=== PATIENT | male | born 1965 | race Caucasian/White ===

== ENCOUNTER 2020-06-01 15:20 | Emergency (ER) | payer OTHER ==
[~2020-06-01 15:20] MED LIST: IBUPROFEN800 MG PO; ZOFRAN ODT 4 MG4 MG SL
== END 2020-06-01 16:10 | disposition home or self-care (01) ==
LOC: ER1 15:20
DX: S51.801A Unspecified open wound of right forearm, initial encounter (principal); E11.9 Type 2 diabetes mellitus without complications; X58.XXXA Exposure to other specified factors, initial encounter; Z88.5 Allergy status to narcotic agent; Z88.6 Allergy status to analgesic agent
CPT/HCPCS: 99283

== ENCOUNTER 2020-12-21 04:14 | Emergency (ER) | payer OTHER ==
[~2020-12-21] VITALS: Ht 182.9 cm; Wt 113.4 kg
[2020-12-21 07:41] LABS: RED BLOOD COUNT 2.46 M/UL (4.20-5.50); WHITE BLOOD COUNT 11.6 K/UL (4.5-11.0)
[2020-12-21 21:52] LABS: ACINETOBACTER BAUMANNII Not Detected (Negative); CANDIDA ALBICANS Not Detected (Negative); CANDIDA KRUSEI Not Detected (Negative); CANDIDA TROPICALIS Not Detected (Negative); ENTEROCOCCUS Not Detected (Negative); ESCHERICHIA COLI Not Detected (Negative); HAEMOPHILUS INFLUENZAE Not Detected (Negative); KLEBSIELLA OXYTOCA Not Detected (Negative); KLEBSIELLA PNEUMONIAE Not Detected (Negative); KPC-CARBAPENEM-RESISTANCE GENE Not Detected (Negative); PROTEUS Not Detected (Negative); PSEUDOMONAS AERUGINOSA Not Detected (Negative); SERRATIA MARCESANS Not Detected (Negative); STAPHYLOCOCCUS Not Detected (Negative); STAPHYLOCOCCUS AUREUS Not Detected (Negative); STREP AGALACTIAE (GROUP B) Not Detected (Negative); STREP PYOGENES (GROUP A) Not Detected (Negative); mecA (METHICILLIN RESIST GENE Not Detected (Negative); vanA/B (VANCOMYCIN RESIST GENE Not Detected (Negative)
[2020-12-22 00:24] LABS: STREPTOCOCCUS DETECTED (Negative)
[2020-12-22 05:04] LABS: HEMOGLOBIN 7.7 gm/dl (14.0-17.5); RED BLOOD COUNT 2.34 M/UL (4.20-5.50); WHITE BLOOD COUNT 12.3 K/UL (4.5-11.0)
[2020-12-22 07:38] LABS: HEMOGLOBIN 7.5 gm/dl (14.0-17.5)
== END 2020-12-22 11:10 | disposition short-term general hospital (02) ==
LOC: ER1 04:14
PROVIDERS: Family Medicine; Internal Medicine; Student in an Organized Health Care Education/Training Program
DX: A41.9 Sepsis, unspecified organism (principal); R65.21 Severe sepsis with septic shock; G93.41 Metabolic encephalopathy; J96.01 Acute respiratory failure with hypoxia; K74.60 Unspecified cirrhosis of liver; R41.82 Altered mental status, unspecified; Z20.822 Contact with and (suspected) exposure to COVID-19; R77.8 Other specified abnormalities of plasma proteins; N17.9 Acute kidney failure, unspecified; N18.9 Chronic kidney disease, unspecified; R18.8 Other ascites; J90 Pleural effusion, not elsewhere classified; J81.1 Chronic pulmonary edema; E11.22 Type 2 diabetes mellitus with diabetic chronic kidney disease
CPT/HCPCS: 31500; 36430; 36556; 36600; 70450; 71045; 71250; 72125; 76705; 80053; 80162; 80307; 82009; 82140; 82550; 82553; 82803; 83036; 83605; 83690; 83735; 83874; 83880; 84484; 85014; 85018; 85025; 85027; 85610; 86850; 86900; 86901; 86920; 87040; 87077; 87150; 87186; 92950; 93005; 94002; 94760; 96374; 99285; C9113; G0480; J0171; J0696; J1720; J1940; J2185; J2250; J2354; J2370; J3370; J7050; P9016; P9047; U0002